=== PATIENT | female | born 1980 | race Caucasian/White ===

== ENCOUNTER 2018-08-17 07:34 | Outpatient (CLI) | payer BC ==
[2018-08-17 08:16] LABS: APPEARANCE,URINE CLOUDY; BILIRUBIN,URINE NEGATIVE (NEGATIVE); COLOR,URINE YELLOW; GLUCOSE, URINE NEGATIVE (NEGATIVE); KETONES,URINE NEGATIVE (NEGATIVE); LEUKOCYTE ESTERASE,URINE TRACE (NEGATIVE); NITRITE,URINE NEGATIVE (NEGATIVE); PROTEIN,URINE NEGATIVE (NEGATIVE); URINE SPECIFIC GRAVITY 1.016; UROBILINOGEN,URINE NEGATIVE mg/dL (<2.0)
--- NOTE | 2018-08-17 08:26 | Non Stress Test Report ---
Non Stress Test Datetime Report Generated by CPN: 08/17/2018 08:25 DEMOGRAPHIC EGA NST: 37.1 INDICATION Indication for Study: Ordered by Provider Indication for Study (NST) Other: BPP per med for GDM MONITORING Monitor Explained: Monitor Explained; Test Explained; Patient Verbalized Understanding Time on Monitor: 08/17/2018 07:46 NST INTERVENTIONS NST Interventions: PO Hydration; Reposition Patient Physician Notified NST: A Handley CNM BABY A: [id number] BABY A Movement : Present Contraction Frequency : 0 FHR Baseline : 125 Accelerations : 15X15 Decelerations : None Variability : Moderate 6-25bpm NST Review: Meets Criteria for Reactive NST NST Review and Verified By : ROMA Beckham Results: Reactive NST REPORT Report Trigger: Send Report
[2018-08-17 08:39] LABS: URINE AMPHETAMINES SCREEN NEGATIVE; URINE BARBITURATES SCREEN NEGATIVE; URINE BENZODIAZEPINES SCREEN NEGATIVE; URINE COCAINE SCREEN NEGATIVE; URINE MARIJUANA (THC) SCREEN NEGATIVE; URINE METHADONE SCREEN NEGATIVE; URINE PHENCYCLIDINE SCREEN NEGATIVE
--- NOTE | 2018-08-17 08:55 | RADIOLOGY REPORT (SQ) ---
EXAM DESCRIPTION: U/S PROFILE W/O STRESS COMPLETED DATE/TIME: 08/17/2018 8:47 am REASON FOR STUDY: BPP of 08/21 yesterday COMPARISON: None. TECHNIQUE: Limited jay-scale realtime and static images of the fetus to measure specified parameter s. LIMITATIONS: None. FINDINGS: HEART RATE: 122 beats per minute. AYANA: 14.4 cm. BREATHING MOVEMENT: 2 points. MOVEMENT: 2 points. POSTURE AND TONE: 2 points. QUALITATIVE AYANA: 2 points. OTHER: No other significant finding. IMPRESSION: BIOPHYSICAL PROFILE: 10/21. Trimester of : Third - 28 weeks to delivery COMMENT: BREATHING MOVEMENTS: 2 POINTS: PRESENT 0 POINTS: ABSENT MOTION: 2 POINTS: PRESENT 0 POINTS: ABSENT TONE: 2 POINTS: PRESENT 0 POINTS: ABSENT AMNIOTIC FLUID VOLUME: 2 POINTS: LARGEST POCKET GREATER THAN 2 CM DEPTH. 0 POINTS: NO POCKET OF 2 CM. TECHNICAL DOCUMENTATION: JOB ID: [id number] [employer]- All Rights Reserved Reading location - IP/workstation name: [email or web address]
== END 2018-08-17 09:10 | disposition home or self-care (01) ==
LOC: LC 07:34
PROVIDERS: ATTEND Obstetrics & Gynecology
PROC: 4A1HXCZ Monitoring of Products of Conception, Cardiac Rate, External Approach (ICD-10-PCS; principal; 2018-08-17)
DX: O24.415 Gestational diabetes mellitus in pregnancy, controlled by oral hypoglycemic drugs (principal); O99.283 Endocrine, nutritional and metabolic diseases complicating pregnancy, third trimester; E03.9 Hypothyroidism, unspecified; O09.523 Supervision of elderly multigravida, third trimester; Z3A.37 37 weeks gestation of pregnancy
CPT/HCPCS: 59025; 76819; 80307; 81005

== ENCOUNTER 2018-08-23 13:27 | Inpatient (IN) | payer BC, MEDICAID ==
[2018-08-27 11:07] LABS: ABSOLUTE MONOCYTES (AUTO) 0.5 10^3/uL (0.1-1.4); HEMATOCRIT 36.1 % (36.0-47.0); HEMOGLOBIN 12.1 g/dL (12.0-15.5); MEAN CORPUSCULAR HGB CONC 33.6 g/dL (32.0-36.0); TOTAL CELLS COUNTED % (AUTO) 100 %
[2018-08-27 11:14] LABS: APPEARANCE,URINE CLEAR; BILIRUBIN,URINE NEGATIVE (NEGATIVE); COLOR,URINE COLORLESS; GLUCOSE, URINE NEGATIVE (NEGATIVE); KETONES,URINE NEGATIVE (NEGATIVE); LEUKOCYTE ESTERASE,URINE NEGATIVE (NEGATIVE); NITRITE,URINE NEGATIVE (NEGATIVE); PROTEIN,URINE NEGATIVE (NEGATIVE); URINE SPECIFIC GRAVITY 1.003; UROBILINOGEN,URINE NEGATIVE mg/dL (<2.0)
[2018-08-27 11:16] LABS: ABSOLUTE LYMPHOCYTES (AUTO) 1.6 10^3/uL (0.5-4.7); ABSOLUTE NEUT (AUTO) 5.8 10^3/uL (1.7-8.2); BASOPHILS % (AUTO) 0.2 % (0-2); EOSINOPHILS % (AUTO) 0.3 % (0-6); LYMPHOCYTES % (AUTO) 20.3 % (13-45); MEAN CORPUSCULAR HEMOGLOBIN 27.6 pg (27.0-33.4); MEAN CORPUSCULAR VOLUME 82 fl (80-97); MONOCYTES % (AUTO) 6.3 % (3-13); PLATELET COUNT 386 10^3/uL (150-450); RED BLOOD COUNT 4.39 10^6/uL (3.72-5.28); RED CELL DISTRIBUTION WIDTH 16.4 % (11.5-14.0); SEGMENTED NEUTROPHILS % (AUTO) 72.9 % (42-78); WHITE BLOOD COUNT 7.9 10^3/uL (4.0-10.5)
[2018-08-27 11:31] LABS: URINE AMPHETAMINES SCREEN NEGATIVE; URINE BARBITURATES SCREEN NEGATIVE; URINE BENZODIAZEPINES SCREEN NEGATIVE; URINE COCAINE SCREEN NEGATIVE; URINE MARIJUANA (THC) SCREEN NEGATIVE; URINE METHADONE SCREEN NEGATIVE; URINE PHENCYCLIDINE SCREEN NEGATIVE
[2018-08-30] MEDS ORDERED: CEFAZOLIN 2 GM/D5W RTU 2 GM/50 ML RTUPB IV ONE (06:30)
[2018-08-30] MEDS ORDERED: RINGERS SOLUTION,LACTATED 1,000 ML IV ONE (06:30)
[2018-08-30] MEDS ORDERED: RINGERS SOLUTION,LACTATED 1,000 ML IV PRN ×2 (06:31→10:28)
[2018-08-30] MEDS ORDERED: OXYTOCIN 10 UNIT/ML VIAL ONE (09:09)
[2018-08-30] MEDS ORDERED: FENTANYL CITRATE INJ/PF 100 MCG/2 ML AMPUL ONE (09:10)
[2018-08-30] MEDS ORDERED: MIDAZOLAM 2 MG/2 ML INJ ONE (09:10)
[2018-08-30] MEDS ORDERED: KETOROLAC TROMETHAMINE INJ/PF 30 MG/1 ML SDV ONE (09:10)
[2018-08-30] MEDS ORDERED: OXYTOCIN/NORMAL SALINE 20 UNIT/1,000 ML RTUINJ ONE (09:10)
[2018-08-30] MEDS ORDERED: EPHEDRINE SULFATE INJ 50 MG/1 ML AMPULE ONE (09:10)
[2018-08-30] MEDS ORDERED: ONDANSETRON HCL INJ/PF 4 MG/2 ML SDV ONE (09:11)
[2018-08-30] MEDS ORDERED: METOCLOPRAMIDE HCL INJ/PF 10 MG/2 ML SDV ONE (09:24)
[2018-08-30] MEDS ORDERED: MEPERIDINE HCL/PF INJ 25 MG/1 ML DISP.SYRIN IV PRN (10:10)
[2018-08-30] MEDS ORDERED: MORPHINE SULFATE 10 MG/ML INJ IV PRN ×2 (10:10→10:28)
[2018-08-30] MEDS ORDERED: FENTANYL CITRATE INJ/PF 100 MCG/2 ML AMPUL IV PRN (10:10)
[2018-08-30] MEDS ORDERED: OXYCODONE-ACETAMINOPHEN 5-325 MG TABLET PO PRN ×3 (10:10→10:28)
[2018-08-30] MEDS ORDERED: DIPHENHYDRAMINE HCL 50 MG/ML VIAL IV PRN (10:10)
[2018-08-30] MEDS ORDERED: PROMETHAZINE HCL INJ 25 MG/1 ML VIAL IV PRN ×3 (10:10→10:28)
[2018-08-30] MEDS ORDERED: ONDANSETRON HCL INJ/PF 4 MG/2 ML SDV IV PRN (10:10)
[2018-08-30] MEDS ORDERED: MEASLES,MUMPS&RUBELLA VACC/PF 0.5 ML VIAL SUBCUT PRN (10:28)
[2018-08-30] MEDS ORDERED: DIPH/PERTUSS(ACELL)/TETANUS VAC/PF 0.5 ML SYR (>=10YO) IM PRN (10:28)
[2018-08-30] MEDS ORDERED: SIMETHICONE 80 MG TAB.CHEW PO PRN (10:28)
[2018-08-30] MEDS ORDERED: OXYTOCIN/NORMAL SALINE 20 UNIT/1,000 ML RTUINJ IV PRN (10:28)
[2018-08-30] MEDS ORDERED: ACETAMINOPHEN 1,000 MG/100 ML RTUPB IV PRN (10:28)
[2018-08-30] MEDS ORDERED: ACETAMINOPHEN 325 MG TABLET PO PRN (10:28)
--- NOTE | 2018-08-30 10:49 | OPERATIVE REPORT E ---
Operative Report NAME: CORNELIUS EVANS : 1980 AGE: 38Y DATE OF SURGERY: 08/30/2018 ROOM: 214 PREOPERATIVE DIAGNOSES: 1. IUP at 39 weeks and 1 day. 2. Previous , desires repeat. POSTOPERATIVE DIAGNOSES: 1. IUP at 39 weeks and 1 day. 2. Previous , desires repeat. OPERATION: Low-transverse hysterotomy section. SURGEON: KATHLEEN VEGA M.D. FEDERAL APPELLATE CLERK: Ines Al, 1st assistant account manager surgical technology instructor ANESTHESIA: Dr. Darby with a spinal. FINDINGS: Male in cephalic presentation with Apgars of 9 and 9. COMPLICATIONS: None. ESTIMATED BLOOD LOSS: 650 mL. SPECIMENS REMOVED: None. PROCEDURE IN DETAIL: The patient was taken to the operating room, prepared and draped in a normal sterile fashion in a supine position with a leftward tilt. A transverse skin incision was made with a scalpel and carried through to the underlying layer of fascia with the same scalpel. The fascia was excised in the midline and extended laterally with Bethany. Fascia was dissected from the rectus muscle sharply with Bethany both superiorly and inferiorly. Rectus muscle was divided sharply with the Bovie, and the rectus muscle was divided. Peritoneal cavity was entered bluntly. The bladder blade was inserted. The hysterotomy was nicked above the bladder with a scalpel and extended laterally with surgeon finger fracture. The was then delivered atraumatically. The nose and mouth were suctioned with a suction bulb, and the cord was clamped and cut. The was handed off to awaiting pediatricians. Cord blood was collected. The placenta was removed manually. The uterus was exteriorized and cleared of clots and debris. The hysterotomy was closed with 0 Monocryl in a running, locked fashion. A second layer of the same suture was used to imbricate to ensure hemostasis. The uterus was returned to the abdomen. The peritoneal cavity was cleared of clots and debris. The rectus muscle and peritoneum were reapproximated with a mattress stitch of 2-0 chromic. The fascia was closed with 0 Vicryl. The subcutaneous layer was closed with plain catgut, and the skin was closed with 4-0 Vicryl. The patient tolerated the procedure well. Sponge, lap and needle counts were correct x2, and the patient was taken to recovery in stable condition. DICTATING PHYSICIAN: KATHLEEN VEGA M.D. [id number] PHY#: [id number] ID: [id number] JOB#: [id number] ACCT: [id number] cc:KATHLEEN VEGA M.D. >
[2018-08-30] MEDS ORDERED: ACETAMINOPHEN 1,000 MG/100 ML RTUPB IV ONE (10:50)
[2018-08-30] MEDS: KETOROLAC TROMETHAMINE INJ/PF 30 MG/1 ML SDV IV SCH ×2 (14:23→21:31)
[2018-08-30] MEDS: OXYCODONE-ACETAMINOPHEN 5-325 MG TABLET PO PRN ×2 (14:52→20:02)
[2018-08-30] MEDS: DOCUSATE SODIUM 100 MG CAPSULE PO SCH (17:18)
[2018-08-31] MEDS: KETOROLAC TROMETHAMINE INJ/PF 30 MG/1 ML SDV IV SCH (05:32)
[2018-08-31] MEDS: OXYCODONE-ACETAMINOPHEN 5-325 MG TABLET PO PRN ×3 (07:44→21:55)
[2018-08-31 09:25] LABS: HEMATOCRIT 28.4 % (36.0-47.0); HEMOGLOBIN 9.7 g/dL (12.0-15.5); MEAN CORPUSCULAR HEMOGLOBIN 28.3 pg (27.0-33.4); MEAN CORPUSCULAR VOLUME 83 fl (80-97); PLATELET COUNT 300 10^3/uL (150-450); RED BLOOD COUNT 3.42 10^6/uL (3.72-5.28); RED CELL DISTRIBUTION WIDTH 17.6 % (11.5-14.0); WHITE BLOOD COUNT 7.7 10^3/uL (4.0-10.5)
[2018-08-31] MEDS: DOCUSATE SODIUM 100 MG CAPSULE PO SCH ×2 (09:40→17:54)
[2018-08-31] MEDS: PRENATAL VITAMIN W DHA CAPSULE PO SCH (09:40)
--- NOTE | 2018-08-31 10:49 | PDOC PROGRESS REPORT ---
Subjective-OB Progress Note for:: 08/31/18 Subjective: OOB in room, no signs of low H&H, pain under control, thinks she waited too long to ask for pain med, breast and bottle feeding Physical Exam (OB) Vital Signs: Temp Pulse Resp BP Pulse Ox 97.7 F 72 16 100/55 L 100 08/31/18 07:47 08/31/18 07:47 08/31/18 07:47 08/31/18 07:47 08/31/18 07:47 Intake & Output 08/30/18 08/31/18 09/01/18 06:59 06:59 06:59 Intake Total 3670 Output Total 2625 Balance 1045 Weight 97.522 kg - PIH/Pre-Eclampsia DTR's: 2 + Clonus: Negative Headache: Absent Epigastric Pain: No Visual Changes: No - Dressing Removed: No - Opsite CD&I Incision: Dressing, Well Approximated Closure Type: Surgical Glue - Lochia Lochia Amount: Scant < 10 ml Lochia Color: Rubra/Red - Abdomen Description: Tender, Soft Hernia Present: No Fundal Description: Firm, Midline Fundal Height: u/u - u/2 Objective-Diagnostic Laboratory: 08/31/18 08:54 08/31/18 08:54 WBC 7.7 RBC 3.42 L Hgb 9.7 L Hct 28.4 L MCV 83 MCH 28.3 MCHC 34.0 RDW 17.6 H Plt Count 300 Assessment and Plan(PN) - Assessment and Plan (2) AMA (advanced maternal age) multigravida 35+ Qualifiers: Trimester: first trimester Qualified Code(s): O09.521 - Supervision of elderly multigravida, first trimester Is this a current diagnosis for this admission?: Yes (3) Anemia due to acute blood loss Is this a current diagnosis for this admission?: Yes (4) Status post repeat low transverse section Is this a current diagnosis for this admission?: Yes - Time Spent with Patient Time with patient: Less than 15 minutes Medications reviewed and adjusted accordingly: Yes - Disposition Anticipated Discharge: Home Within: within 24 hours
[2018-08-31] MEDS: IBUPROFEN 800 MG TABLET PO SCH ×2 (13:05→21:16)
[2018-09-01] MEDS: IBUPROFEN 800 MG TABLET PO SCH (05:05)
[2018-09-01] MEDS: OXYCODONE-ACETAMINOPHEN 5-325 MG TABLET PO PRN ×2 (07:39→12:12)
[2018-09-01] MEDS: DOCUSATE SODIUM 100 MG CAPSULE PO SCH (09:29)
[2018-09-01] MEDS: PRENATAL VITAMIN W DHA CAPSULE PO SCH (09:29)
--- NOTE | 2018-09-01 09:57 | PDOC DISCHARGE SUMMARY ---
Final Diagnosis Discharge Date: 09/01/18 - Final Diagnosis (1) Hypothyroid in , antepartum Is this a current diagnosis for this admission?: Yes (2) AMA (advanced maternal age) multigravida 35+ Is this a current diagnosis for this admission?: Yes (3) Anemia due to acute blood loss Is this a current diagnosis for this admission?: Yes (4) Status post repeat low transverse section Is this a current diagnosis for this admission?: Yes Discharge Data - Discharge Medication Prescriptions: Docusate Sodium [Colace 100 mg Capsule] 100 mg PO BID #60 capsule Ibuprofen [Motrin 800 mg Tablet] 800 mg PO Q8HP PRN #90 tablet PRN Reason: Oxycodone HCl/Acetaminophen [Percocet 5-325 mg Tablet] 1 tab PO Q4HP PRN #30 tablet PRN Reason: Thyroid,Pork [[place] Thyroid] 90 mg PO DAILY #30 tablet Home Medications: Ranitidine HCl [Zantac 150 mg Tablet] 150 mg PO BID 08/27/18 Docusate Sodium [Colace 100 mg Capsule] 100 mg PO BID #60 capsule 09/01/18 Ibuprofen [Motrin 800 mg Tablet] 800 mg PO Q8HP PRN #90 tablet 09/01/18 Oxycodone HCl/Acetaminophen [Percocet 5-325 mg Tablet] 1 tab PO Q4HP PRN #30 tablet 09/01/18 Simethicone [Mylicon 80 mg Chewable Tablet] 80 mg PO QIDP PRN tab.chew 09/01/18 Thyroid,Pork [[place] Thyroid] 90 mg PO DAILY #30 tablet 09/01/18 Reason(s) for Admission: Ceasarean Section-Repeat Intrapartum Procedure(s): : Low Cervical, Transverse - Diagnosis Test Laboratory: Temp Pulse Resp BP Pulse Ox 97.8 F 70 24 H 113/61 98 09/01/18 08:12 09/01/18 08:12 09/01/18 08:12 09/01/18 08:12 09/01/18 08:12 08/27/18 08/27/18 08/31/18 10:40 10:45 08:54 RBC 4.39 3.42 L Hgb 12.1 9.7 L Hct 36.1 28.4 L Urine Opiates Screen NEGATIVE - Discharge information/Instructions Discharge Activity: Balance Activity w/Rest, No Lifting/Push/Pulling, Pelvic Rest, No tub bath Discharge Diet: Regular Disposition: HOME, SELF-CARE Follow up with: [facility] in: 1, Weeks
[2018-09-01 10:51] VITALS: BP 124/61
[2018-09-04] MEDS ORDERED: IBUPROFEN 800 MG TABLET PO SCH (12:00)
== END 2018-09-01 13:55 | disposition home or self-care (01) | DRG 787 ==
LOC: 2S 08-30 06:10
PROVIDERS: ADMIT Obstetrics & Gynecology; ATTEND Obstetrics & Gynecology
PROC: 10D00Z1 Extraction of Products of Conception, Low, Open Approach (ICD-10-PCS; principal; 2018-08-30 09:00)
DX: O34.211 Maternal care for low transverse scar from previous cesarean delivery (principal); D62 Acute posthemorrhagic anemia; O99.284 Endocrine, nutritional and metabolic diseases complicating childbirth; E03.9 Hypothyroidism, unspecified; O90.81 Anemia of the puerperium; O24.415 Gestational diabetes mellitus in pregnancy, controlled by oral hypoglycemic drugs; Z79.3 Long term (current) use of hormonal contraceptives; Z79.84 Long term (current) use of oral hypoglycemic drugs; Z87.891 Personal history of nicotine dependence; Z37.0 Single live birth; Z3A.39 39 weeks gestation of pregnancy
CPT/HCPCS: 1961; 36415; 80307; 81001; 82962; 85025; 85027; 86850; 86900; 86901; 94799; J0131; J1885; J2250; J2270; J2405; J2590; J2765; J3010; J3490; J7120

== ENCOUNTER 2018-09-29 11:10 | Observation (INO) | payer BC ==
[~2018-09-29 11:10] MED LIST: DEXAMETHASONE SOD PHOSPHATE INJ 4 MG/1 ML VIAL ONE; KETOROLAC TROMETHAMINE 60 MG/2 ML SDV ONE; ONDANSETRON HCL INJ/PF 4 MG/2 ML SDV ONE; ROCURONIUM BROMIDE INJ 50 MG/5 ML VIAL IV ONE; SUCCINYLCHOLINE CHLORIDE INJ 200 MG/10 ML VIAL ONE
[2018-09-29] MEDS ORDERED: ONDANSETRON 4 MG TAB.RAPDIS PO ONE (11:40)
[2018-09-29 12:05] LABS: APPEARANCE,URINE CLEAR; BILIRUBIN,URINE NEGATIVE (NEGATIVE); COLOR,URINE STRAW; GLUCOSE, URINE NEGATIVE (NEGATIVE); KETONES,URINE NEGATIVE (NEGATIVE); LEUKOCYTE ESTERASE,URINE SMALL (NEGATIVE); NITRITE,URINE NEGATIVE (NEGATIVE); PROTEIN,URINE NEGATIVE (NEGATIVE); URINE SPECIFIC GRAVITY 1.008; UROBILINOGEN,URINE NEGATIVE mg/dL (<2.0)
[2018-09-29 12:07] LABS: ABSOLUTE EOSINOPHILS # (AUTO) 0.1 10^3/uL (0.0-0.6); ABSOLUTE LYMPHOCYTES (AUTO) 1.9 10^3/uL (0.5-4.7); ABSOLUTE MONOCYTES (AUTO) 0.5 10^3/uL (0.1-1.4); ABSOLUTE NEUT (AUTO) 8.1 10^3/uL (1.7-8.2); BASOPHILS % (AUTO) 0.4 % (0-2); EOSINOPHILS % (AUTO) 0.8 % (0-6); HEMATOCRIT 40.6 % (36.0-47.0); HEMOGLOBIN 13.8 g/dL (12.0-15.5); LYMPHOCYTES % (AUTO) 17.5 % (13-45); MEAN CORPUSCULAR HEMOGLOBIN 28.5 pg (27.0-33.4); MEAN CORPUSCULAR HGB CONC 33.9 g/dL (32.0-36.0); MEAN CORPUSCULAR VOLUME 84 fl (80-97); MONOCYTES % (AUTO) 4.6 % (3-13); PLATELET COUNT 370 10^3/uL (150-450); RED BLOOD COUNT 4.83 10^6/uL (3.72-5.28); RED CELL DISTRIBUTION WIDTH 16.9 % (11.5-14.0); SEGMENTED NEUTROPHILS % (AUTO) 76.7 % (42-78); TOTAL CELLS COUNTED % (AUTO) 100 %; WHITE BLOOD COUNT 10.6 10^3/uL (4.0-10.5)
[2018-09-29 12:16] LABS: ADD MANUAL MICROSCOPIC YES
[2018-09-29 12:17] LABS: BACTERIA,URINE TRACE /HPF
[2018-09-29 12:26] LABS: ALANINE AMINOTRANSFERASE 38 U/L (9-52); ALBUMIN 4.3 g/dL (3.5-5.0); ALKALINE PHOSPHATASE 104 U/L (38-126); ANION GAP 9 (5-19); ASPARTATE AMINO TRANSFERASE 21 U/L (14-36); BILIRUBIN,DIRECT 0.3 mg/dL (0.0-0.4); BILIRUBIN,TOTAL 0.4 mg/dL (0.2-1.3); BLOOD UREA NITROGEN 15 mg/dL (7-20); CALCIUM 9.8 mg/dL (8.4-10.2); CARBON DIOXIDE 28 mmol/L (22-30); CHLORIDE 102 mmol/L (98-107); GLUCOSE 111 mg/dL (75-110); LIPASE 44.3 U/L (23-300); POTASSIUM 4.7 mmol/L (3.6-5.0); TOTAL PROTEIN 7.3 g/dL (6.3-8.2)
--- NOTE | 2018-09-29 12:48 | RADIOLOGY REPORT (SQ) ---
EXAM DESCRIPTION: U/S ABDOMEN LIMITED W/O DOP COMPLETED DATE/TIME: 09/29/2018 12:28 pm REASON FOR STUDY: RUQ pain COMPARISON: None. TECHNIQUE: Dynamic and static grayscale images acquired of the abdomen and recorded on PACS. Additio nal selected color Doppler and spectral images recorded. LIMITATIONS: None. FINDINGS: PANCREAS: No masses. Visualized pancreatic duct normal caliber. LIVER: No masses. Echotexture normal. LIVER VASCULATURE: Normal directional flow of the main portal vein and hepatic veins. GALLBLADDER: Gallstone(s). No pericholecystic fluid. No wall thickening. ULTRASOUND-DETECTED MAHONEY'S SIGN: Positive. INTRAHEPATIC DUCTS AND COMMON DUCT: CBD and intrahepatic ducts normal caliber. No filling defects. INFERIOR VENA CAVA: Normal flow. AORTA: No aneurysm. RIGHT KIDNEY: Normal size. Normal echogenicity. No solid or suspicious masses. No hydronephrosis. No calcifications. PERITONEAL AND RIGHT PLEURAL SPACE: No ascites or effusions. OTHER: No other significant findings. IMPRESSION: Cholelithiasis. TECHNICAL DOCUMENTATION: JOB ID: [id number] [employer]- All Rights Reserved Reading location - IP/workstation name: [email or web address]
[2018-09-29] MEDS ORDERED: MORPHINE SULFATE 10 MG/ML INJ IV ONE (13:54)
--- NOTE | 2018-09-29 14:10 | ER Document Report ---
Entered by AGUSTINA DUENAS SCRIBE 09/29/18 1249 Acting as scribe for:RAHEEM JACOBO MD ED General - General Chief Complaint: Epigastric Pain Stated Complaint: ABDOMINAL PAIN Time Seen by Provider: 09/29/18 11:40 Notes: Patient is a 38-year-old female presenting the emergency department with abdominal pain. Patient states that the pain is mainly on her right side, up in her epigastric area. Patient states that the pain started late last night, the last thing she ate was ice cream drumstick for a snack. Before that she had chicken noodles for dinner at 1900. Patient states that 4 weeks ago on 08/30 she delivered a baby full-term. Patient states that she is currently breast- feeding. Patient states that she is currently taking [place] Thyroid's, Zantac, prenatals. TRAVEL OUTSIDE OF THE [place] IN LAST 30 DAYS: No - Related Data Allergies/Adverse Reactions: Latex, Natural Rubber Allergy (Verified 09/29/18 11:11) No Known Drug Allergies Allergy (Verified 09/29/18 11:11) Past Medical History - General Information source: Patient - Social History Smoking Status: Current Every Day Smoker Cigarette use (# per day): No Chew tobacco use (# tins/day): No Frequency of alcohol use: Occasional Drug Abuse: None Family History: Reviewed & Not Pertinent Patient has suicidal ideation: No Patient has homicidal ideation: No Endocrine Medical History: Reports: Hx Hypothyroidism - PO MEDS GI Medical History: Reports: Hx Gastroesophageal Reflux Disease Review of Systems - Review of Systems Constitutional: No symptoms reported EENT: No symptoms reported Cardiovascular: No symptoms reported Respiratory: No symptoms reported Gastrointestinal: See HPI, Abdominal pain Genitourinary: No symptoms reported Female Genitourinary: See HPI Musculoskeletal: No symptoms reported Skin: No symptoms reported Hematologic/Lymphatic: No symptoms reported Neurological/Psychological: No symptoms reported -: Yes All other systems reviewed and negative Physical Exam - Vital signs Vitals: Temp Pulse Resp BP Pulse Ox 97.8 F 60 18 145/81 H 100 09/29/18 11:14 09/29/18 11:14 09/29/18 11:14 09/29/18 11:14 09/29/18 11:14 - Notes Notes: Physical Exam: General: Alert, appears well. HEENT: Normocephalic. Atraumatic. PERRL. Extraocular movements intact. Oropharynx clear. Neck: Supple. Non-tender. Respiratory: No respiratory distress. Clear and equal breath sounds bilaterally. Cardiovascular: Regular rate and rhythm. Abdominal: Right upper quadrant tenderness to palpation. No distension. Normal Bowel Sounds. Back: Non-tender. No deformity or step off. Extremities: Moves all four extremities. Upper extremities: Normal inspection. Normal ROM. Lower extremities: Normal inspection. No edema. Normal ROM. Neurological: Normal cognition. AAOx4. Normal speech. Psychological: Normal affect. Normal Mood. Skin: Warm. Dry. Normal color. Course - Vital Signs Vital signs: Temp Pulse Resp BP Pulse Ox 97.4 F 55 L 14 138/87 H 98 09/30/18 08:14 09/30/18 08:14 09/30/18 08:14 09/30/18 08:14 09/30/18 08:14 - Laboratory Result Diagrams: 09/29/18 11:50 09/29/18 11:50 Laboratory results interpreted by me: 09/29/18 09/29/18 09/29/18 11:50 11:50 11:50 WBC 10.6 H RDW 16.9 H Glucose 111 H Ur Leukocyte Esterase SMALL H Discharge - Discharge Clinical Impression: Cholelithiasis Qualifiers: Cholelithiasis location: gallbladder Cholecystitis presence: without cholecystitis Biliary obstruction: without biliary obstruction Qualified Code(s): K80.20 - Calculus of gallbladder without cholecystitis without obstruction Condition: Stable Disposition: ADMITTED INPATIENT Admitting Provider: Surgicalist Unit Admitted: Surgical Floor Scribe Attestation: 09/29/18 13:52 I personally performed the services described in the documentation, reviewed and edited the documentation which was dictated to the scribe in my presence, and it accurately records my words and actions. I personally performed the services described in the documentation, reviewed and edited the documentation which was dictated to the scribe in my presence, and it accurately records my words and actions.
[2018-09-29] MEDS ORDERED: MIDAZOLAM 2 MG/2 ML INJ ONE (15:03)
[2018-09-29] MEDS ORDERED: FENTANYL CITRATE INJ/PF 100 MCG/2 ML AMPUL ONE (15:03)
[2018-09-29] MEDS ORDERED: HYDROMORPHONE HCL INJ/PF 2 MG/ML AMPULE ONE (15:04)
[2018-09-29] MEDS ORDERED: PROPOFOL INJ 200 MG/20 ML VIAL IV ONE (15:04)
[2018-09-29] MEDS ORDERED: BUPIVACAINE HCL 0.25 % INJ/PF (2.5 MG/1 ML) 30 ML VIAL ONE (15:10)
--- NOTE | 2018-09-29 15:19 | PDOC H&P ---
History of Present Illness Admission Date/PCP: 09/29/18 14:29 GUERO LOPEZ Patient complains of: Persistent, severe right upper quadrant pain that is unrelenting with nausea and vomiting History of Present Illness: CORNELIUS EVANS is a 38 year old female with right upper quadrant pain, nausea, and vomiting that has been unrelenting since ingesting a fatty meal last night. The patient reports sharp, stabbing, cramping right upper quadrant abdominal pain that radiates around to her back. It is accompanied by nausea and vomiting. She rates her pain is 8 out of 10. It is persistent. Nothing has made it better. Eating a fatty meal made it worse. She denies any other significant medical problems. Currently, she denies chest pain, shortness of breath, fevers, chills, melena, hematochezia, hematemesis, headache, dizziness, orthostasis, fatigue, weight loss. Past Medical History Endocrine Medical History: Reports: Hypothyroidism - PO MEDS Denies: Hyperthyroidism GI Medical History: Reports: Gastroesophageal Reflux Disease Denies: Hiatal Hernia Hematology: Reports: Anemia - DURING PREGANANCY Denies: Hemophilia, Sickle Cell Disease Infectious Medical History: Denies: HIV Social History Smoking Status: Current Every Day Smoker Hx Recreational Drug Use: No Hx Prescription Drug Abuse: No Family History Parental Family History Reviewed: Yes Children Family History Reviewed: Yes Sibling(s) Family History Reviewed.: Yes Medication/Allergy Home Medications: Docusate Sodium [Colace 100 mg Capsule] 100 mg PO BIDP PRN 09/29/18 Ibuprofen [Motrin 800 mg Tablet] 800 mg PO Q8HP PRN 09/29/18 Vits96/Iron Fum/Folic [ Tablet] 1 each PO DAILY 09/29/18 Ranitidine HCl [Zantac] 150 mg PO QHS 09/29/18 Simethicone [Mylicon 80 mg Chewable Tablet] 80 mg PO QIDP PRN 09/29/18 Thyroid,Pork [[place] Thyroid] 90 mg PO DAILY 09/29/18 Allergies/Adverse Reactions: Latex, Natural Rubber Allergy (Verified 09/29/18 11:11) No Known Drug Allergies Allergy (Verified 09/29/18 11:11) Review of Systems Constitutional: ABSENT: anorexia, chills, fatigue, fever(s) Eyes: ABSENT: visual disturbances Ears: ABSENT: hearing changes Cardiovascular: ABSENT: chest pain Respiratory: ABSENT: cough, dyspnea Gastrointestinal: PRESENT: abdominal pain, nausea, vomiting. ABSENT: melena Genitourinary: ABSENT: dysuria Musculoskeletal: PRESENT: back pain Integumentary: ABSENT: pruritus, rash Neurological: ABSENT: confusion, convulsions, dizziness Psychiatric: ABSENT: anxiety, depression Endocrine: ABSENT: cold intolerance, heat intolerance Hematologic/Lymphatic: ABSENT: easy bleeding, easy bruising Physical Exam Vital Signs: Temp Pulse Resp BP Pulse Ox 98.2 F 62 18 138/87 H 100 09/29/18 14:47 09/29/18 14:47 09/29/18 14:47 09/29/18 14:47 09/29/18 14:47 Intake & Output 09/28/18 09/29/18 09/30/18 06:59 06:59 06:59 Weight 88.4 kg General appearance: PRESENT: no acute distress, cooperative Head exam: PRESENT: atraumatic, normocephalic Eye exam: PRESENT: EOMI, PERRLA. ABSENT: scleral icterus Mouth exam: PRESENT: moist, neck supple Neck exam: ABSENT: meningismus, tenderness, thyromegaly, tracheal deviation Respiratory exam: PRESENT: clear to auscultation edwardo, unlabored. ABSENT: chest wall tenderness, tachypnea, wheezes Pulses: ABSENT: normal radial pulses Vascular exam: PRESENT: normal capillary refill. ABSENT: pallor GI/Abdominal exam: PRESENT: soft, tenderness - RUQ. ABSENT: distended, firm Rectal exam: PRESENT: deferred Extremities exam: ABSENT: clubbing Musculoskeletal exam: ABSENT: deformity Neurological exam: PRESENT: alert, awake, oriented to person, oriented to place, oriented to time, oriented to situation Psychiatric exam: ABSENT: agitated, anxious Focused psych exam: ABSENT: delusional Skin exam: ABSENT: cyanosis, erythema, jaundice Results Laboratory Results: 09/29/18 11:50 09/29/18 11:50 09/29/18 09/29/18 09/29/18 11:50 11:50 11:50 WBC 10.6 H RBC 4.83 Hgb 13.8 Hct 40.6 MCV 84 MCH 28.5 MCHC 33.9 RDW 16.9 H Plt Count 370 Seg Neutrophils % 76.7 Lymphocytes % 17.5 Monocytes % 4.6 Eosinophils % 0.8 Basophils % 0.4 Absolute Neutrophils 8.1 Absolute Lymphocytes 1.9 Absolute Monocytes 0.5 Absolute Eosinophils 0.1 Absolute Basophils 0.0 Sodium 139.0 Potassium 4.7 Chloride 102 Carbon Dioxide 28 Anion Gap 9 BUN 15 Creatinine 0.79 Est GFR ( Amer) > 60 Est GFR (Non-Af Amer) > 60 Glucose 111 H Calcium 9.8 Total Bilirubin 0.4 AST 21 ALT 38 Alkaline Phosphatase 104 Total Protein 7.3 Albumin 4.3 Lipase 44.3 Urine Color STRAW Urine Appearance CLEAR Urine pH 6.0 Ur Specific [place] 1.008 Urine Protein NEGATIVE Urine Glucose (UA) NEGATIVE Urine Ketones NEGATIVE Urine Blood NEGATIVE Urine Nitrite NEGATIVE Ur Leukocyte Esterase SMALL H Impressions: Abdomen Ultrasound 09/29/18 11:40 IMPRESSION: Cholelithiasis. Assessment & Plan - Diagnosis (1) Acute cholecystitis Is this a current diagnosis for this admission?: Yes - Plan Summary Plan Summary: This is a 38-year-old female with gallstones, and persistent/unrelenting right upper quadrant pain. She also has accompanying nausea and vomiting. I have diagnosed patient with early acute cholecystitis. I will admit her to the hospital and perform laparoscopic cholecystectomy. Risks/benefits discussed, informed consent obtained, and all questions answered.
[2018-09-29] MEDS ORDERED: CEFAZOLIN INJ 1 GM VIAL ONE (15:21)
[2018-09-29] MEDS ORDERED: METRONIDAZOLE 500 MG/NS RTU 500 MG/100 ML RTUPB IV ONE (15:21)
[2018-09-29] MEDS ORDERED: DIPHENHYDRAMINE HCL 50 MG/ML VIAL IV PRN (15:52)
[2018-09-29] MEDS ORDERED: MORPHINE SULFATE 10 MG/ML INJ IV PRN (15:52)
[2018-09-29] MEDS ORDERED: PROMETHAZINE HCL INJ 25 MG/1 ML VIAL IV PRN ×2 (15:52→19:19)
[2018-09-29] MEDS ORDERED: FENTANYL CITRATE INJ/PF 100 MCG/2 ML AMPUL IV PRN ×3 (15:52)
[2018-09-29] MEDS ORDERED: MEPERIDINE HCL/PF INJ 25 MG/1 ML DISP.SYRIN IV PRN (15:52)
[2018-09-29] MEDS ORDERED: OXYCODONE-ACETAMINOPHEN 5-325 MG TABLET PO PRN ×2 (15:52)
[2018-09-29] MEDS ORDERED: ONDANSETRON HCL INJ/PF 4 MG/2 ML SDV IV PRN (16:54)
--- NOTE | 2018-09-29 20:10 | Operative Report ---
Nonrecallable Operative Report DATE OF SURGERY: 09/29/18 PREOPERATIVE DIAGNOSIS: Acute cholecystitis POSTOPERATIVE DIAGNOSIS: 1. Same. 2. Gallbladder hydrops. OPERATION: Laparoscopic cholecystectomy SURGEON: JERSEY GAITAN ANESTHESIA: GA TISSUE REMOVED OR ALTERED: Gallbladder COMPLICATIONS: None apparent ESTIMATED BLOOD LOSS: Minimal PROCEDURE: Drains/implants: None. Procedure in detail: After informed consent was obtained, the patient was brought into the operating room and laid in the supine position. The area of the abdomen was prepped and draped in a normal sterile fashion. An infraumbilical incision was created with a 15 blade scalpel. Dissection was carried through the subcutaneous tissue using sharp and blunt dissection. The cicatrix was identified, grasped with a Wanda clamp, and retracted upwards. The linea alba fascia was incised sharply, the abdomen was entered sharply. The balloon trocar was inserted, and pneumoperitoneum was achieved. A subxiphoid 5 mm port was placed under direct laparoscopic visualization. 2 more 5 mm ports were placed in the right upper quadrant in similar fashion. Atraumatic graspers were placed through the 5 mm ports. The gallbladder was retracted cephalad and laterally. The gallbladder was tense and distended. The gallbladder was aspirated. A large amount of hydropic bile was removed. Dissection was begun in the triangle of [place]. The cystic duct and cystic artery were fully visualized and skeletonized, seeing the liver through the triangle. Once the critical view of safety was obtained, the cystic duct and cystic artery were clipped and cut with laparoscopic instruments. The gallbladder was then removed from the liver using Bovie electrocautery. The gallbladder was placed into an Endo Catch bag, and pulled out through the umbilicus. The camera was reinserted. The hilum was inspected. It was found to be free of any leakage of blood or bile. Once this was confirmed, the 5 mm trochars were removed under direct laparoscopic visualization. The infraumbilical trocar was removed, and pneumoperitoneum was relieved. The infraumbilical fascia was closed using 0 Vicryl suture in [id number] fashion. The overlying skin was closed using 4-0 Vicryl Rapide suture in subcuticular fashion. Dressings were placed, and the procedure was concluded. All sponge, instrument, and needle counts were correct x2. Condition: Stable.
[2018-09-29] MEDS: OXYCODONE-ACETAMINOPHEN 5-325 MG TABLET PO PRN (21:27)
--- NOTE | 2018-09-30 05:08 | PDOC DISCHARGE SUMMARY ---
General - Admit/Disc Date/PCP Admission Date/Primary Care Provider: 09/29/18 14:29 GUERO LOPEZ Discharge Date: 09/30/18 - Discharge Diagnosis (1) Acute cholecystitis Is this a current diagnosis for this admission?: Yes - Additional Information Resuscitation Status: Full Code Discharge Diet: As Tolerated Discharge Activity: No Lifting Over 10 Pounds, No Lifting/Push/Pulling, No tub bath Home Medications: Docusate Sodium [Colace 100 mg Capsule] 100 mg PO BIDP PRN 09/29/18 Ibuprofen [Motrin 800 mg Tablet] 800 mg PO Q8HP PRN 09/29/18 Vits96/Iron Fum/Folic [ Tablet] 1 each PO DAILY 09/29/18 Ranitidine HCl [Zantac] 150 mg PO QHS 09/29/18 Simethicone [Mylicon 80 mg Chewable Tablet] 80 mg PO QIDP PRN 09/29/18 Thyroid,Pork [[place] Thyroid] 90 mg PO DAILY 09/29/18 History of Present Illness History of Present Illness: CORNELIUS EVANS is a 38 year old female with right upper quadrant pain, nausea, and vomiting that has been unrelenting since ingesting a fatty meal last night. The patient reports sharp, stabbing, cramping right upper quadrant abdominal pain that radiates around to her back. It is accompanied by nausea and vomiting. She rates her pain is 8 out of 10. It is persistent. Nothing has made it better. Eating a fatty meal made it worse. She denies any other significant medical problems. Currently, she denies chest pain, shortness of breath, fevers, chills, melena, hematochezia, hematemesis, headache, dizziness, orthostasis, fatigue, weight loss. Hospital Course Hospital Course: The patient was admitted to the hospital for acute cholecystitis. She was taken to the operating room, where laparoscopic cholecystectomy was performed. The patient did well after surgery. She was taken to the floor in stable condition. She began tolerating a diet, ambulating, and by 09/30/2018 it was felt that she was medically fit for discharge. Physical Exam Vital Signs: Temp Pulse Resp BP Pulse Ox 97.4 F 58 L 18 101/51 L 99 09/29/18 23:40 09/29/18 23:40 09/29/18 23:40 09/29/18 23:40 09/29/18 23:40 Intake & Output 09/28/18 09/29/18 09/30/18 06:59 06:59 06:59 Intake Total 750 Output Total 10 Balance 740 Weight 88.4 kg Results Laboratory Results: 09/29/18 11:50 09/29/18 11:50 09/29/18 09/29/18 09/29/18 11:50 11:50 11:50 WBC 10.6 H RBC 4.83 Hgb 13.8 Hct 40.6 MCV 84 MCH 28.5 MCHC 33.9 RDW 16.9 H Plt Count 370 Seg Neutrophils % 76.7 Lymphocytes % 17.5 Monocytes % 4.6 Eosinophils % 0.8 Basophils % 0.4 Absolute Neutrophils 8.1 Absolute Lymphocytes 1.9 Absolute Monocytes 0.5 Absolute Eosinophils 0.1 Absolute Basophils 0.0 Sodium 139.0 Potassium 4.7 Chloride 102 Carbon Dioxide 28 Anion Gap 9 BUN 15 Creatinine 0.79 Est GFR ( Amer) > 60 Est GFR (Non-Af Amer) > 60 Glucose 111 H Calcium 9.8 Total Bilirubin 0.4 AST 21 ALT 38 Alkaline Phosphatase 104 Total Protein 7.3 Albumin 4.3 Lipase 44.3 Urine Color STRAW Urine Appearance CLEAR Urine pH 6.0 Ur Specific [place] 1.008 Urine Protein NEGATIVE Urine Glucose (UA) NEGATIVE Urine Ketones NEGATIVE Urine Blood NEGATIVE Urine Nitrite NEGATIVE Ur Leukocyte Esterase SMALL H Impressions: Abdomen Ultrasound 09/29/18 11:40 IMPRESSION: Cholelithiasis. Qualifiers - * PATIENT BEING DISCHARGED WITH ANY OF THE FOLLOWING DIAGNOSIS: No Acute Heart Failure - Is this a Heart Failure Patient?: No Plan Discharge Plan: Discharge home. Diet as tolerated. Activity: No lifting greater than 10 pounds x 2 weeks. Follow-up with me in 7 to 10 days. [place] 10/325 mg p.o. every 6 hours as needed for pain. Okay to shower on Thursday. No tub baths or swimming pools x2 weeks. Time Spent: Less than 30 Minutes
[2018-09-30 08:15] VITALS: BP 138/87
[2018-09-30] MEDS: OXYCODONE-ACETAMINOPHEN 5-325 MG TABLET PO PRN (08:36)
== END 2018-09-30 11:00 | disposition home or self-care (01) ==
LOC: ER 11:10 → EH 14:29 → INTOOBSV 14:29 → 2S 17:20
PROVIDERS: ADMIT Surgery; ATTEND Surgery
PROC: 0FT44ZZ Resection of Gallbladder, Percutaneous Endoscopic Approach (ICD-10-PCS; principal; 2018-09-29 14:45)
DX: K80.10 Calculus of gallbladder with chronic cholecystitis without obstruction (principal); K82.1 Hydrops of gallbladder; E03.9 Hypothyroidism, unspecified; M54.9 Dorsalgia, unspecified; K21.9 Gastro-esophageal reflux disease without esophagitis; F17.200 Nicotine dependence, unspecified, uncomplicated; Z79.899 Other long term (current) drug therapy
CPT/HCPCS: 99284; 96374; 36415; 83690; 85025; 80053; 81001; 88304 ×2; 76705; 00790; 47562; G0378 ×2; J2250; J0690; J3490 ×2; J1100; J1885; S0119; J2270; J1170; J2550; J0330; J2405; J2704; 790; J3010